=== PATIENT | male | born 1955 | race Caucasian/White ===

== ENCOUNTER → 2020-10-13 | Outpatient (CLI) | payer MEDICARE, BC ==
[~2020-10-13] MED LIST: IOHEXOL 240 MG/ML 50ML VIAL. ONE; IOHEXOL 300 MG/ML 75 ML VIAL. IV ONE
--- NOTE | 2020-10-13 15:35 | RAD ---
EXAM: Chest, abdomen and pelvis CT with intravenous contrast. HISTORY: Esophageal mass. Weight loss. TECHNIQUE: Computed tomographic images of the chest, abdomen and pelvis were obtained following the a dministration of intravenous contrast. Multiplanar reformatting was performed. *One or more of the following individualized dose reduction techniques were utilized for this examina tion: 1. Automated exposure control. 2. Adjustment of the mA and/or kV according to patient size. 3. Use of iterative reconstruction technique. COMPARISON: None. FINDINGS: The heart is normal in size. The aorta is normal in caliber. There is a small hypodense nod ule within the right thyroid lobe. There are a few nonspecific mediastinal and hilar lymph nodes. The se are not clearly pathologically enlarged. There is a patulous air and contrast-filled esophagus. Th ere is eccentric masslike wall thickening of the anterior esophagus solid to the right of midline sli ghtly proximal to the gastroesophageal junction. There is also wall thickening involving the gastroes ophageal junction and proximal gastric cardia. There is no pneumothorax or pleural effusion. There is minimal biapical emphysema. There is no suspicious pulmonary nodule. There is no suspicious osseous lesion. Abdomen and pelvis: No hepatic lesion is seen. The gallbladder, pancreas, spleen, adrenal glands and kidneys are unremarkable. There is no appendicitis. There is a suspected appendicolith within the michelle endix. There is no bowel obstruction. There is no abnormal bowel wall thickening. The bladder is unre markable. The prostate is prominent in size. The aorta is normal in caliber. There is no lymphadenopa thy. There is a tiny maxillary and left inguinal hernia. There are degenerative changes throughout th e spine. This is associated with foraminal and central canal stenosis at multiple levels. The central canal stenosis is most severe at L3-L4 and L4-L5. IMPRESSION: 1. Eccentric masslike thickening of the distal esophagus. There may also be involvement of the gastro esophageal junction and gastric cardia. Correlate with endoscopy findings and tissue sampling. 2. No acute thoracic, abdominal or pelvic finding. 3. No convincing lymphadenopathy. 4. Small right thyroid nodule. This can be better assessed with a thyroid sonogram. Electronically signed by: Landy Pino MD (10/13/2020 3:33 PM) [id number]
== END ==
LOC: CT 07:48
PROVIDERS: ATTEND Internal Medicine Gastroenterology
DX: K22.8 Other specified diseases of esophagus (principal); E04.1 Nontoxic single thyroid nodule; M48.061 Spinal stenosis, lumbar region without neurogenic claudication; M47.816 Spondylosis without myelopathy or radiculopathy, lumbar region
CPT/HCPCS: 36415; 71260; 74177; 82565; 84520; Q9967